=== PATIENT | female | born 1975 | race Caucasian/White ===

== ENCOUNTER → 2023-02-17 | Outpatient (CLI) | payer BC ==
--- NOTE | 2023-02-17 08:02 | US ---
EXAMINATION TYPE: US abdomen complete DATE OF EXAM: 02/17/2023 COMPARISON: NONE CLINICAL INDICATION: Female, 48 years old with history of R10.9 UNSPECIFIED ABDOMINAL PAIN; Pt states generalized ABD pain, N&V TECHNIQUE: Multiple sonographic images of the abdomen are obtained. FINDINGS: EXAM MEASUREMENTS: Liver Length: 15.8 cm Gallbladder Wall: 0.2 cm CBD: 0.2 cm Spleen: 9.0 cm Right Kidney: 10.9 x 4.8 x 5.0 cm Left Kidney: 11.0 x 4.3 x 4.9 cm Pancreas: wnl, tail obscured by overlying bowel gas Liver: Heterogeneous Gallbladder: Non-mobile gallstone within neck, adenomyomatosis anterior wall, wall not thickened Evidence for sonographic Negrete's sign: No CBD: wnl Spleen: Possible small granulomas Right Kidney: wnl Left Kidney: wnl Upper IVC: wnl Abd Aorta: wnl, distal portion gassed out The liver is heterogenous.. The intrahepatic portion of the IVC and proximal abdominal aorta are wit hin normal limits. There is no evidence of cholelithiasis. Common bile duct is unremarkable. The v isualized portions of the pancreas are homogenous. The spleen is unremarkable. Kidneys are symmetri c and free of hydronephrosis. No renal lesions are seen. IMPRESSION: 1. Hepatocellular disease likely relating to hepatic steatosis. 2. Cholelithiasis. 3. Possible calcified granulomas in the spleen. 4. Gallbladder wall artifact compatible with adenomyomatosis.
== END | disposition home or self-care (01) ==
LOC: RADUSWWP 07:07
PROVIDERS: ATTEND Family Medicine
DX: K80.20 Calculus of gallbladder without cholecystitis without obstruction (principal); R10.84 Generalized abdominal pain
CPT/HCPCS: 76700

== ENCOUNTER → 2023-04-15 | Outpatient (CLI) | payer BC ==
--- NOTE | 2023-04-16 13:46 | NM ---
EXAMINATION TYPE: NM hepatobiliary w EF DATE OF EXAM: 04/15/2023 COMPARISON: NONE INDICATION: Abdomen pain TECHNIQUE: After the intravenous administration of 4.3 mCi Tc 99m Mebrofenin hepatobiliary scintigrap hy is performed. Images were obtained immediately post injection. FINDINGS: There is prompt uptake and excretion of radiotracer by the liver. Extrahepatic ducts are identified at 6 minutes. The gallbladder is visualized within 24 minutes. Small bowel activity is noted within 8 minutes. Gallbladder was somewhat difficult to identify during this examination. A secondary curve of radiotra cer in this right upper quadrant may be accounted for by the Phyrangian cap. 90 minute delayed images were obtained. At one hour 8 ounces of oral ensure plus is given to mimic CCK and gallbladder ejection fraction is c alculated at 91 %, which is in the elevated range. (Normal >35% and <80%.). IMPRESSION: 1. Biliary hyperkinesia.
== END | disposition home or self-care (01) ==
LOC: RADNMMAIN 06:58
PROVIDERS: ATTEND Family Medicine
DX: K82.8 Other specified diseases of gallbladder (principal); R10.9 Unspecified abdominal pain
CPT/HCPCS: 78226; A9537

== ENCOUNTER → 2023-04-22 | Outpatient (CLI) | payer BC ==
--- NOTE | 2023-04-29 11:12 | CT ---
EXAMINATION TYPE: CT abdomen wo/w con CT DLP: 1991.20 mGycm, Automated exposure control for dose reduction was used. DATE OF EXAM: 04/22/2023 8:51 AM COMPARISON: Ultrasound abdomen 02/17/2023. Nuclear medicine HIDA scan with ejection fraction 04/15/2023. CLINICAL INDICATION:Female, 48 years old with history of R10.9 ABD PAIN; Abdominal pain, possible gal lstones TECHNIQUE: Oral contrast was given. Axial CT of the abdomen was performed without IV contrast, follo wing IV contrast administration, and delayed images through the kidneys. Sagittal and coronal reforma ts were created on a separate workstation. Contrast used:100 mL of Isovue 300 with IV Contrast, (none if empty) Oral contrast used: with Oral Contrast (none if empty) FINDINGS: LOWER CHEST: Lung bases are clear. Heart is normal in size. Mildly prominent pericardial fat. No noel cardial or pleural effusion. ABDOMEN LIVER: Unremarkable GALLBLADDER AND BILE DUCTS: Gallbladder is not distended, appears partially contracted. No calcified gallstones seen. Gallbladder wall in the fundus and body appears within normal limits. In the gallbla dder neck, there is mild circumferential wall thickening and enhancement. No pericholecystic inflamma tory changes. PANCREAS: Unremarkable. SPLEEN: Unremarkable. ADRENAL GLANDS: Mildly thickened, may be seen with hyperplasia.. KIDNEYS AND URETERS: No renal calculi. Kidneys enhance symmetrically and show no discrete mass or oth er lesion. There is symmetric excretion of contrast from both kidneys and the visualized upper ureter s appear unremarkable. STOMACH AND BOWEL: Contrast in the stomach and duodenum without significant distention. There is a so mewhat thickened appearance of the wall just beyond the GE junction as well as antrum and pyloric nacho nnel. Contrast traverses the stomach and small bowel loops without evidence of obstruction. Visualize d colon contains a moderate amount of stool throughout, contrast has not yet reached the colon. There is no focal acute colonic abnormality seen. There are a few scattered diverticuli seen, but no evide nce of diverticulitis. PERITONEUM/RETROPERITONEUM: No evidence of pneumoperitoneum or free fluid. VASCULATURE: Mild atherosclerotic calcifications are present throughout the abdominal aorta and its b ranches. No evidence of aortic aneurysm. Portal venous system is patent. LYMPH NODES: No gross evidence for lymphadenopathy. SOFT TISSUE/ABDOMINAL WALL: Tiny fat-containing umbilical region hernia. MUSCULOSKELETAL: No acute osseous abnormalities. Small broad-based posterior disc bulges appear prese nt in the lower lumbar region, especially L4-L5 and L5-S1, without significant canal or foraminal antonio nosis suggested. IMPRESSION: * Partially contracted gallbladder without evidence of calcified gallstones or pericholecystic infla mmatory changes. If concern for occult gallstone, repeat ultrasound may be considered. * Mildly circumferentially thickened enhancing gallbladder wall towards the neck. Differential inclu willow cholecystitis (acute or chronic), inflammation from recently passed gallstone, cholecystoses (johan nomyomatosis, cholesterolosis), and less likely neoplasm (gallbladder polyps, gallbladder carcinoma, leiomyosarcoma, benign tumors including adenoma, papilloma, villous hyperplasia, fibroadenoma). * Somewhat thickened appearance of the wall of the stomach, just beyond the GE junction as well as a ntrum and pyloric channel, could be from nondistention versus true pathologic thickening.
== END | disposition home or self-care (01) ==
LOC: RADCTMAIN 07:58
PROVIDERS: ATTEND Family Medicine
DX: K82.8 Other specified diseases of gallbladder (principal); R10.9 Unspecified abdominal pain
CPT/HCPCS: 74170; Q9967

== ENCOUNTER 2023-10-20 14:00 | Day surgery (SDC) | payer BC ==
[2023-10-17 16:01] VITALS: BMI 39.0
--- NOTE | 2023-10-20 13:06 | P.GSHP ---
History of Present Illness H&P Date: 10/20/23 CHIEF COMPLAINT: Cholecystitis HISTORY OF PRESENT ILLNESS: The patient is a 48-year-old female who presents with history of epigastric including right upper quadrant abdominal pain. She underwent diagnostic studies for her gallbladder. Separately her clinical picture was consistent with cholecystitis. Now she presents for surgical intervention. PAST MEDICAL HISTORY: Please see list PAST SURGICAL HISTORY: Please see list MEDICATIONS: Please see list ALLERGIES: Please see list SOCIAL HISTORY: Please see list FAMILY HISTORY: Please see list REVIEW OF ORGAN SYSTEMS: CONSTITUTIONAL: No reports of fevers or chills. HEENT: Denies any troubles with the vision or hearing. ENDOCRINE: No reports of hypothyroidism. No diabetes. RESPIRATORY: No recent pneumonias. CARDIOVASCULAR: Denies chest pain or palpitations GI: No blood in stools or constipation. MUSCULOSKELETAL: Has occasional joint pain including back pain. NEURO: No seizure disorders or headaches. No recent stroke. PSYCH: No depression or suicidal ideation. GENITOURINARY: No active blood in urine. No urinary hesitancy. HEMATOLOGIC: No personal or family history of DVTs or pulmonary emboli. SKIN: No skin cancer. PHYSICAL EXAM: VITAL SIGNS: Afebrile vital signs stable GENERAL: Well-developed pleasant in no acute distress. HEENT: No scleral icterus. Extraocular movements grossly intact. Moist buccal mucosa. NECK: Supple without lymphadenopathy. CHEST: Unlabored respirations. Equal bilateral excursions. CARDIOVASCULAR: Regular rate regular rhythm rhythm. Distal 2+ pulses. ABDOMEN: Soft, nondistended. Tender along the epigastrium and right upper quadrant. MUSCULOSKELETAL: No clubbing, cyanosis, or edema. NEURO: Cranial nerves II to XII within normal limits. No focal or lateralizing signs. PSYCH: Alert and oriented to person, place and time. SKIN: Well-perfused good skin turgor. ASSESSMENT: 1. Epigastric and right upper quadrant abdominal pain 2. Chronic cholecystitis 3. Symptomatic gallstones. PLAN: 1. Will need a robotic cholecystectomy possible open. Benefits and risks were described. 2. Heparin for DVT prophylaxis 5000 units. 3. Antibiotic prophylaxis. 4. CBC and CMP on day of procedure 5. Non-narcotic pre and post op pain management reviewed. 6. Indocyanine green for biliary imaging. Past Medical History Past Medical History: No Reported History History of Any Multi-Drug Resistant Organisms: None Reported Past Surgical History: Heart Catheterization Past Anesthesia/Blood Transfusion Reactions: No Reported Reaction Past Psychological History: Anxiety, Depression Smoking Status: Former smoker Past Alcohol Use History: None Reported Past Drug Use History: None Reported - Past Family History Mother Family Medical History: No Reported History Medications and Allergies Home Medications Medication Instructions Recorded Confirmed Type Phentermine/Topiramate [Qsymia 1 cap PO QAM 10/17/23 10/17/23 History 11.25 mg-69 mg Capsule] Sertraline [Zoloft] 100 mg PO DAILY 10/17/23 10/17/23 History Allergies Allergy/AdvReac Type Severity Reaction Status Date / Time No Known Allergies Allergy Verified 10/17/23 15:55
[~2023-10-20 14:00] MED LIST: INDOCYANINE GREEN 25 MG VIAL IV STA; LIDOCAINE 1% (10MG/ML) FOR IV START INTRADERMA PRN; MIDAZOLAM 2 MG/2 ML VIAL IV PRN; ONDANSETRON 4 MG/2 ML VIAL IVP PRN; fentaNYL (PF) 50 MCG/ML 2 ML AMP IVP PRN
[2023-10-20] MEDS: IV FLUID CONTINUATION 1,000 ML IV ONE ×3 (14:14→18:24)
[2023-10-20] MEDS: ACETAMINOPHEN TAB 500 MG TAB PO PRN (14:26)
[2023-10-20] MEDS: ONDANSETRON 4 MG/2 ML VIAL IVP ONE (14:37)
[2023-10-20] MEDS: LACTATED RINGERS 1,000 ML IV SCH (14:37)
[2023-10-20] MEDS: DEXAMETHASONE SOD PHOSPHATE 4 MG/ML 1 ML VIAL IV ONE (14:37)
[2023-10-20] MEDS: HEPARIN SODIUM,PORCINE 5,000 UNIT/ML 1 ML VIAL SQ PRN (14:38)
[2023-10-20] MEDS: SCOPOLAMINE 1 MG/72 HR PATCH TRANSDERM STA (14:45)
[2023-10-20 15:09] LABS: Basophils # (A) 0.1 k/uL (0-0.2); Basophils % (A) 1 %; Eosinophils # (A) 0.3 k/uL (0-0.7); Eosinophils % (A) 3 %; HCT 41.5 % (34.0-46.0); HGB 13.5 gm/dL (11.4-16.0); Lymphocytes % (A) 20 %; MCH 30.4 pg (25.0-35.0); MCHC 32.5 g/dL (31.0-37.0); MCV 93.5 fL (80.0-100.0); Mean Platelet Volume 7.9; Monocytes # (A) 0.5 k/uL (0-1.0); Monocytes % (A) 5 %; Neutrophils # (A) 6.8 k/uL (1.3-7.7); Neutrophils % (A) 70 %; Platelet Count 258 k/uL (150-450); RBC 4.44 m/uL (3.80-5.40); RDW 13.6 % (11.5-15.5); WBC 9.7 k/uL (3.8-10.6)
[2023-10-20] MEDS ORDERED: KETAMINE HCL IN 0.9 % NACL 50 MG/5 ML SYRINGE ONE (15:47)
[2023-10-20] MEDS ORDERED: ROCURONIUM 10 MG/ML (5 ML VIAL) IV ONE (15:47)
[2023-10-20] MEDS ORDERED: GLYCOPYRROLATE 0.2 MG/ML 2 ML VIAL ONE (15:47)
[2023-10-20] MEDS ORDERED: SUCCINYLCHOLINE CHLORIDE 200 MG/10 ML VIAL IV ONE (15:47)
[2023-10-20] MEDS ORDERED: PROPOFOL 10 MG/ML 20 ML VIAL IV ONE (15:47)
[2023-10-20] MEDS ORDERED: LIDOCAINE 4% LTA KIT (4 ML) TOPICAL ONE (15:47)
[2023-10-20] MEDS ORDERED: HYDROmorphone (PF) 1 MG/ML ONE (15:47)
[2023-10-20] MEDS ORDERED: fentaNYL (PF) 50 MCG/ML 2 ML AMP ONE (15:47)
[2023-10-20] MEDS ORDERED: LIDOCAINE 1% INJ 10MG/ML (20 ML MDV) ONE (15:47)
[2023-10-20] MEDS ORDERED: KETOROLAC 15 MG/ML 1 ML VIAL ONE (15:47)
[2023-10-20] MEDS ORDERED: MIDAZOLAM 2 MG/2 ML VIAL ONE (15:47)
[2023-10-20] MEDS ORDERED: NEOSTIGMINE 1 MG/ML 10 ML VIAL ONE (15:47)
[2023-10-20] MEDS: LIDOCAINE 1%-EPI 1:100,000 20 ML VIAL SQ ONE (16:06)
[2023-10-20 17:34] VITALS: TEMP 97.9
[2023-10-20] MEDS ORDERED: KETOROLAC 15 MG/ML 1 ML VIAL IVP PRN (17:49)
[2023-10-20] MEDS ORDERED: HYDROcodone/APAP 7.5-325MG 1 EACH TAB PO PRN (17:49)
--- NOTE | 2023-10-20 17:50 | P.OP ---
Date of Procedure: 10/20/23 Description of Procedure: SURGEON: BERE MARTINEZ MD PREOPERATIVE DIAGNOSES: 1. Symptomatic gallstone 2. Right upper quadrant abdominal pain 3. Depressive disorder 4. Morbid obesity due to excess calories, BMI 39.1 5. Generalized anxiety disorder 6. History of heart catheterization POSTOPERATIVE DIAGNOSES: 1. Symptomatic gallstone 2. Right upper quadrant abdominal pain 3. Depressive disorder 4. Morbid obesity due to excess calories, BMI 39.1 5. Moderate to severe right upper quadrant peritoneal adhesions 6. Fatty liver disease with hepatomegaly OPERATION: 1. Robotic-assisted da Poornima Xi laparoscopic cholecystectomy, multiport with FIREFLY 2. Robotic-assisted da Poornima Xi laparoscopic cholecystectomy, multiport with FIREFLY ESTIMATED BLOOD LOSS: 10 mL. SPECIMENS REMOVED: Gallbladder. COMPLICATIONS: None. OPERATIVE FINDINGS: 1. Moderate scarring over entire gallbladder with peritoneal adhesions, pericholecystic with features of chronic cholecystitis 2. Fatty liver disease with hepatomegaly INDICATIONS: The patient is a 48-year-old female who presents with symptomatic gallstones. Robotic assisted laparoscopic approach was described. Benefits and risks of the procedure including but not limited to bleeding, infection, injury to the biliary tree was described. Informed consent was obtained. DESCRIPTION OF PROCEDURE: Patient was brought to the operating room, placed in supine position. After general induction, the abdomen had been prepped and draped in standard sterile fashion. The robotic da Poornima XI system was primed. After a timeout protocol was performed, the patient had been prepped and draped in standard sterile fashion. The patient was injected with indocyanine green. A 5 mm 0 degrees laparoscopic trocar entry was performed along the left upper quadrant. The abdomen insufflated to 15 mmHg pressure which was tolerated well. Diagnostic laparoscopy demonstrated no injury to bowel viscera or mesentery. The liver surface was unremarkable. Next, two 8 mm robotic ports were placed along the right upper abdomen. The camera 8-mm port was maintained along the epigastrium. Another 8 mm port was placed along the left upper abdominal wall after exchanging the 5 mm port. Please note that the ports were placed at least 10 to 15 cm away from the target anatomy of the gallbladder. The robot was docked along the left lateral abdomen. The patient was repositioned in reverse Trendelenburg position. Using a grasper for arm 3, a grasper for arm 4, including hook cautery for arm 1, the robotic system was docked and primed as described. Instruments were interchanged by the operations and intelligence assistant including hook cautery, Bovie cautery and clip appliers. I had sat at the console. The gallbladder was moderately scarred with peritoneal adhesions include along the right upper quadrant. Lysis of adhesions was performed to free the gallbladder from the surrounding tissues. Next attention was brought to the infundibulum and cystic structures. The infundibulum and cystic duct were dissected free from surrounding tissues. The cystic duct was isolated. FIREFLY was used to identify the cystic artery and cystic structures. A critical view of safety was obtained. Large PLASTIC clips were used throughout the entire case. Using a clip manager coding, 3 clips were placed at the junction of the infundibulum and cystic duct. The cystic duct was divided between clips. Next, the cystic artery was similarly clipped and cauterized. Two (2) clips fell off during the transection of the cystic duct. Electro-Bovie cautery was used to remove the gallbladder from the hepatic fossa. Hemostasis was checked and found to be adequate. The robot was undocked. I re-scrubbed into the case. Using a 10 mm Endo Catch bag via the left upper quadrant incision, the specimen was removed from the abdominal cavity. All pneumoperitoneum instruments were evacuated from the abdominal cavity. The incisions were reapproximated using 4-0 Monocryl in an interrupted subcuticular fashion. The left upper quadrant fascia was widened requiring 0 Vicryl and Frank Laguerre. Please note along the trocar sites, local anesthetic was placed as a field block prior to insertion of all instruments. Liquid glue was applied to the skin. At the end of the procedure needle, sponge, and instrument count had been verified correct by the surgical services coordinator. The patient was transferred to postanesthesia care unit in stable condition. Intraoperative films were shared with the patient's family. Plan - Discharge Summary Discharge Rx Participant: No New Discharge Prescriptions: New Simethicone [Gas-X] 125 mg PO AC-TID PRN #20 capsule PRN Reason: Pain Ibuprofen [Motrin] 600 mg PO Q8HR PRN #30 tab PRN Reason: Pain Acetaminophen Tab [Tylenol Tab] 1,000 mg PO Q6HR PRN #30 tablet PRN Reason: Pain Continue Sertraline [Zoloft] 100 mg PO DAILY Phentermine/Topiramate [Qsymia 11.25 mg-69 mg Capsule] 1 cap PO QAM Discharge Medication List Phentermine/Topiramate [Qsymia 11.25 mg-69 mg Capsule] 1 cap PO QAM 10/17/23 [History] Sertraline [Zoloft] 100 mg PO DAILY 10/17/23 [History] Acetaminophen Tab [Tylenol Tab] 1,000 mg PO Q6HR PRN #30 tablet 10/20/23 [Rx] Ibuprofen [Motrin] 600 mg PO Q8HR PRN #30 tab 10/20/23 [Rx] Simethicone [Gas-X] 125 mg PO AC-TID PRN #20 capsule 10/20/23 [Rx] Follow up Appointment(s)/Referral(s): Bere Martinez MD [STAFF PHYSICIAN] - 10/25/23 6:00 pm (TELEHEALTH) Patient Instructions/Handouts: *Surgery [facility] - Laparoscopic Cholecystectomy Discharge Instructions, Low Fat Diet (DC) Activity/Diet/Wound Care/Special Instructions: TELEHEALTH - DR WILL CALL YOU BETWEEN 9 am to 8 pm NO LONG DRIVES OR AIRPLANE RIDES OVER 30 MINUTES FOR THE NEXT 2 WEEKS DUE TO HIGH RISK OF PULMONARY EMBOLISM/DVTs Recommend low-fat diet for the next 2 days. No lifting over 10 pounds in 2 weeks until November 02August shower. No bath tub soaks for two weeks until November 02 Diet as tolerated. Use Tylenol, simethicone and ibuprofen or Aleve scheduled for the next 24-48 hours for best pain relief. Use ice along incisions for today to prevent swelling. Discharge Disposition: HOME SELF-CARE
[2023-10-20] MEDS: HYDROmorphone 0.5 MG/0.5 ML SYRINGE IVP PRN (18:54)
[2023-10-20 18:58] VITALS: RESP 15
[2023-10-20 19:05] VITALS: BP 118/76; PULSE 91
== END 2023-10-20 19:24 | disposition home or self-care (01) ==
LOC: OR 14:00
PROVIDERS: ATTEND Surgery Plastic and Reconstructive Surgery
DX: K80.10 Calculus of gallbladder with chronic cholecystitis without obstruction (principal); E66.01 Morbid (severe) obesity due to excess calories; F41.1 Generalized anxiety disorder; F32.A Depression, unspecified; K76.0 Fatty (change of) liver, not elsewhere classified; K66.0 Peritoneal adhesions (postprocedural) (postinfection); Z68.39 Body mass index [BMI] 39.0-39.9, adult; Z87.891 Personal history of nicotine dependence; Z79.899 Other long term (current) drug therapy
CPT/HCPCS: 47563; S2900; 85025; 88304

== ENCOUNTER → 2023-11-28 | Outpatient (CLI) | payer BC ==
--- NOTE | 2023-12-21 08:53 | CT ---
Patient Lavinia Brown ID [id number] 1975 Age 48 years Gender O Order # EXAMINATION TYPE: CT abdomen pelvis w con DATE OF EXAM: 11/28/2023 COMPARISON: No comparison available on downtime PACS. INDICATION: Left flank pain DLP: 1084 mGycm, Automated exposure control for dose reduction was used. CONTRAST: 0 mL of Isovue 300. Study performed without Oral Contrast TECHNIQUE: Axial images were obtained from above the diaphragm to the pubic rami in the axial plane a t 5 mm thick sections. Reconstructed images are reviewed on the computer in the coronal plane. FINDINGS: Limited CT sections are obtained the lung bases. The lung bases are clear. CT ABDOMEN: There are some subcutaneous inflammatory changes likely related to recent laparoscopic dumas rgery. Liver: Normal Spleen: Normal Pancreas: Normal Adrenal glands: The adrenal glands are normal. Gallbladder: Surgically absent. No fluid collection is evident. Kidneys: No masses are evident. No hydronephrosis is present. No cysts are present. No renal stone s are evident. Aorta: Normal Inferior vena cava: Normal. CT PELVIS: Loops of bowel within the abdomen and pelvis are normal. This study is without oral contrast limi ting bowel evaluation. Appendix: Normal as visualized. Urinary bladder: Unremarkable Genitourinary structures: Uterus appears bulky. Adnexa appear within normal limits Osseous structures: No suspicious lytic or sclerotic lesions. IMPRESSION: 1. No suspicious abnormalities to account for left upper quadrant pain. 2. No suspicious biliary leak or suspicious inflammatory changes.
== END | disposition home or self-care (01) ==
LOC: RADCTMAIN 07:30
PROVIDERS: ATTEND Surgery Plastic and Reconstructive Surgery
DX: N20.0 Calculus of kidney (principal)
CPT/HCPCS: 74176

== ENCOUNTER 2024-01-25 09:42 | Day surgery (SDC) | payer BC ==
--- NOTE | 2024-01-25 08:54 | P.GSHP ---
History of Present Illness H&P Date: 01/25/24 CHIEF COMPLAINT: Colon screen HISTORY OF PRESENT ILLNESS: The patient is a 48-year-old female who presents for colon screen. Lower endoscopy was offered for further evaluation and management. PAST MEDICAL HISTORY: Please see list. PAST SURGICAL HISTORY: Please see list. MEDICATIONS: Please see list. ALLERGIES: Please see list. SOCIAL HISTORY: No illicit drug use FAMILY HISTORY: No reports of Crohn disease or ulcerative colitis. REVIEW OF ORGAN SYSTEMS: CONSTITUTIONAL: No reports of fevers or chills. PHYSICAL EXAM: VITAL SIGNS: Stable GENERAL: Well-developed pleasant in no acute distress. HEENT: No scleral icterus. Extraocular movements grossly intact. Moist buccal mucosa. NECK: Supple without lymphadenopathy. CHEST: Unlabored respirations. Equal bilateral excursions. CARDIOVASCULAR: Regular rate and rhythm. Distal 2+ pulses. ABDOMEN: Soft, nontender, nondistended. MUSCULOSKELETAL: No clubbing, cyanosis, or edema. ASSESSMENT: 1. Colon screen. PLAN: 1. Recommend proceeding with a lower endoscopy Past Medical History Past Medical History: No Reported History History of Any Multi-Drug Resistant Organisms: None Reported Past Surgical History: Cholecystectomy Past Anesthesia/Blood Transfusion Reactions: No Reported Reaction Smoking Status: Former smoker - Past Family History Father Family Medical History: No Reported History Medications and Allergies Home Medications Medication Instructions Recorded Confirmed Type Phentermine/Topiramate [Qsymia 1 cap PO QAM 10/17/23 01/20/24 History 11.25 mg-69 mg Capsule] Sertraline [Zoloft] 100 mg PO DAILY 10/17/23 01/20/24 History Fexofenadine HCl 180 mg PO DAILY 01/20/24 01/20/24 History Allergies Allergy/AdvReac Type Severity Reaction Status Date / Time No Known Allergies Allergy Verified 01/20/24 10:24
[~2024-01-25 09:42] MED LIST changes: -INDOCYANINE GREEN 25 MG VIAL IV STA; -MIDAZOLAM 2 MG/2 ML VIAL IV PRN; -ONDANSETRON 4 MG/2 ML VIAL IVP PRN; -fentaNYL (PF) 50 MCG/ML 2 ML AMP IVP PRN
[2024-01-25] MEDS: IV FLUID CONTINUATION 1,000 ML IV ONE ×2 (10:01→11:09)
[2024-01-25 10:03] VITALS: TEMP 97.1
[2024-01-25] MEDS: LACTATED RINGERS 1,000 ML IV SCH (10:11)
[2024-01-25] MEDS ORDERED: PROPOFOL 10 MG/ML 20 ML VIAL IV ONE (10:43)
[2024-01-25 11:14] VITALS: RESP 14
--- NOTE | 2024-01-25 11:23 | P.PCN ---
Date of Procedure: 01/25/24 Description of Procedure: PREOPERATIVE DIAGNOSIS: Diverticulitis with left lower quadrant abdominal pain POSTOPERATIVE DIAGNOSIS: Colonoscopy screening. Sigmoid diverticulosis OPERATION: Colonoscopy to the cecum, ileocecal valve and appendiceal orifice. SURGEON: Bere Martinez MD. ANESTHESIA: MAC. INDICATIONS: The patient is a 48-year-old female who presents with left lower quadrant abdominal pain and recent diverticulitis. Benefits and risks were described and informed consent was obtained. DESCRIPTION OF PROCEDURE: The patient had undergone Sutab prep. The patient had been brought into the operating room and laid in the left lateral decubitus position. After adequate intravenous sedation, the rectum was examined with 2% lidocaine jelly. No external hemorrhoids were encountered. The rectal tone was within normal limits. No lesions were palpated in the rectal vault. An Olympus colonoscope was advanced until the cecum, ileocecal valve and appendiceal orifice were clearly viewed. The prep was excellent. Sigmoid diverticulosis without active inflammation and pain and scattered diverticulosis was encountered. Abdominal wall pressure was needed to advance the scope. No colonic polyps were found. No evidence of focal colitis was found. Retroflexion of the scope demonstrated grade 1 internal hemorrhoids without active bleeding or inflammation. The colon was desufflated. The patient had tolerated the procedure well. Withdrawal time was over 6 minutes. FINDINGS: Aronchick preparation quality scale 1 (1-5) Moderate sigmoid diverticulosis Internal hemorrhoids, grade 1 No external prolapsed hemorrhoids. No arteriovenous malformations. No adenomatous polyps. No focal colitis. Redundant sigmoid colon requiring abdominal pressure to advance the scope. RECOMMENDATIONS: Lower endoscopy every 5 years, 2028 Due to persistent left lower quadrant abdominal pain and diverticulosis, may benefit from colectomy Plan - Discharge Summary Discharge Rx Participant: No New Discharge Prescriptions: Continue Fexofenadine HCl 180 mg PO DAILY Sertraline [Zoloft] 100 mg PO DAILY Phentermine/Topiramate [Qsymia 11.25 mg-69 mg Capsule] 1 cap PO QAM Discharge Medication List Phentermine/Topiramate [Qsymia 11.25 mg-69 mg Capsule] 1 cap PO QAM 10/17/23 [History] Sertraline [Zoloft] 100 mg PO DAILY 10/17/23 [History] Fexofenadine HCl 180 mg PO DAILY 01/20/24 [History] Follow up Appointment(s)/Referral(s): Bere Martinez MD [STAFF PHYSICIAN] - 02/07/24 4:15 pm Patient Instructions/Handouts: Diverticulosis Diet (GEN), Diverticulitis Diet (ED), Diverticulosis (ED) Activity/Diet/Wound Care/Special Instructions: Repeat colonoscopy 5 years, 2028 Discharge Disposition: HOME SELF-CARE
[2024-01-25 11:36] VITALS: BP 152/80; PULSE 70
== END 2024-01-25 12:07 | disposition home or self-care (01) ==
LOC: ORWHC2ENDO 09:42
PROVIDERS: ATTEND Surgery Plastic and Reconstructive Surgery
CPT/HCPCS: 45378; 81025

== ENCOUNTER → 2024-04-02 | Outpatient (CLI) | payer BC ==
--- NOTE | 2024-04-02 10:02 | US ---
EXAMINATION TYPE: US abdomen complete DATE OF EXAM: 04/02/2024 COMPARISON: US(02/17/2023) CLINICAL INDICATION: Female, 49 years old with history of R109 ABD PAIN; cholecystectomy TECHNIQUE: Grayscale and color Doppler imaging of the abdomen was performed. FINDINGS: EXAM MEASUREMENTS: Liver Length: 15.2 cm Gallbladder Wall: Surgically absent cm CBD: 0.3 cm, color Doppler imaging was utilized to isolate the common bile duct for measurement. Spleen: 9.6 cm Right Kidney: 11.9x3.9x5.4 cm Left Kidney: 10.8x4.2x5.2 cm SERVICE ASSOCIATE NOTES: limited scan due to pt body habitus and overlying bowel Pancreas: Tail obscured by overlying bowel gas Liver: Increased attenuation, decreased visualization of vessels suggestive of fatty infiltrate dif ficult to penetrate, heterogeneous echotexture Gallbladder: Surgically absent CBD: wnl Spleen: possible echogenic foci seen Right Kidney: No hydronephrosis or masses seen Left Kidney: No hydronephrosis or masses seen Upper IVC: wnl Abd Aorta: prox and mid seen wnl, distal: obscured by overlying bowel The visualized portions of the pancreas unremarkable. Liver demonstrates diffuse increased echogenici ty with decreased visualization of the vesicles. This is difficult to penetrate. This appearance limi ts evaluation for small intrahepatic masses. No gross evidence of mass. Gallbladder is surgically abs ent. Common bile duct is within normal limits. Spleen within normal limits. The visualized portions o f the upper IVC are within normal limits. The visualized portions of the abdominal aorta are within n ormal limits. The distal portion is obscured by overlying bowel gas. Both kidneys demonstrate no jonathan d mass, hydronephrosis or shadowing calculi. IMPRESSION: Limited examination due to patient's body habitus and overlying bowel. 1. Hepatic steatosis. 2. Postcholecystectomy changes. [facility], , 04/02/2024 10:00 AM
== END | disposition home or self-care (01) ==
LOC: RADUSWWP 07:44
PROVIDERS: ATTEND Family Medicine
DX: K76.0 Fatty (change of) liver, not elsewhere classified (principal); R10.9 Unspecified abdominal pain
CPT/HCPCS: 76700

== ENCOUNTER → 2024-04-18 | Outpatient (CLI) | payer BC ==
--- NOTE | 2024-04-19 08:20 | US ---
EXAMINATION TYPE: US carotid duplex BILAT DATE OF EXAM: 04/18/2024 COMPARISON: NONE CLINICAL INDICATION: Female, 49 years old with history of H93.A3 PULSATILE TINNITUS, BILATERAL; pt. c an hear heartbeat in left ear. Dizziness TECHNIQUE: Grayscale, color Doppler and spectral Doppler evaluation of the bilateral carotid systems and vertebral arteries. Indirect Doppler criteria was utilized. FINDINGS: EXAM MEASUREMENTS: RIGHT: Peak Systolic Velocity (PSV) cm/sec ----- Right CCA: 74.2 ----- Right ICA: 44.9 ----- Right ECA: 109 ICA/CCA ratio: 1.2 RIGHT: End Diastole cm/sec ----- Right CCA: 25.5 ----- Right ICA: 16.7 ----- Right ECA: 17.2 LEFT: Peak Systolic Velocity (PSV) cm/sec ----- Left CCA: 64.5 ----- Left ICA: 93.8 ----- Left ECA: 145 ICA/CCA ratio: 1.5 LEFT: End Diastole cm/sec ----- Left CCA: 23.6 ----- Left ICA: 45.5 ----- Left ECA: 27.0 VERTEBRALS (direction of flow): Right Vertebral: Antegrade Left Vertebral: Antegrade Rhythm: Normal DATABASE CONSULTANT NOTES: No significant velocity elevations Color Doppler imaging shows patency with blood flow throughout the carotid artery. Spectral waveforms are within normal limits. IMPRESSION: No hemodynamically significant internal carotid artery stenosis on either side. Criteria for Assigning % of Stenosis / Diameter reduction (Estimation based on the indirect measurements of the internal carotid artery velocities (ICA PSV). 1. Normal (no stenosis)=ICA PSV < 125 cm/s: ratio < 2.0: ICA EDV<40 cm/s. 2. Less than 50% stenosis=ICA PSV < 125 cm/s: ratio < 2.0: ICA EDV<40 cm/s. 3. 50 to 69% stenosis=ICA PSV of 125 to 230 cm/s: ration 2.0 ? 4.0: ICA EDV 40-100 cm/s. 4. Greater than 70% stenosis to near occlusion= ICA PSV > 230 cm/s: ratio > 4.0: ICA EDV > 100 cm/s. 5. Near occlusion= ICA PSV velocities may be low or undetectable: variable ratio and ICA EDV. 6. Total occlusion=unable to detect flow. [facility], , 04/19/2024 8:18 AM
== END | disposition home or self-care (01) ==
LOC: RADUSWWP 15:28
PROVIDERS: ATTEND Otolaryngology
DX: H93.A3 Pulsatile tinnitus, bilateral (principal); R42 Dizziness and giddiness
CPT/HCPCS: 93880

== ENCOUNTER → 2024-06-23 | Outpatient (CLI) | payer BC ==
--- NOTE | 2024-06-23 11:59 | XR ---
EXAMINATION TYPE: XR cervical spine limited DATE OF EXAM: 06/23/2024 11:54 AM INDICATION: Patient age:Female; 49 years old; Reason for study: M54.12 radiculopathy; PHH, pain COMPARISON: None TECHNIQUE: The cervical spine was imaged in frontal, swimmer's, lateral, and odontoid projections. FINDINGS: The osseous structures show normal alignment without evidence of an acute fracture. There is disc spa ce narrowing with endplate sclerosis and osteophytosis of the lower cervical spine involving C5-C7. P edicles are intact. Soft tissues are within normal limits. The odontoid appears intact. IMPRESSION: 1. No fracture or dislocation. 2. Mild degenerative disc disease changes of the lower cervical spine. [facility], , 06/23/2024 11:57 AM
== END | disposition home or self-care (01) ==
LOC: RADXRMAIN 11:22
PROVIDERS: ATTEND Family Medicine
DX: M50.122 Cervical disc disorder at C5-C6 level with radiculopathy (principal)
CPT/HCPCS: 72040